=== PATIENT | female | born 1995 | race Caucasian/White ===

== ENCOUNTER 2017-03-01 14:47 | Emergency (ER) | payer BC ==
[2017-03-01 15:07] VITALS: BP 114/73
--- NOTE | 2017-03-01 15:17 | UC ---
Throat Pain/Nasal Dann HPI - HPI Summary HPI Summary: sore throat x 2 days + fever, chills, body aches no cough , no runny nose - History of Current Complaint Chief Complaint: UCRespiratory Stated Complaint: [facility] Time Seen by Provider: 03/01/17 14:57 Hx Obtained From: Patient Hx Last Menstrual Period: ONSET TODAY ?: No Onset/Duration: Gradual Onset, Lasting Days - 2, Still Present Severity: Moderate Cough: None Associated Signs & Symptoms: Positive: Fever. Negative: Dysphagia, FB Sensation , Drooling, Wheezing, Hoarseness, Sinus Discomfort, Nasal Discharge, Rash - Allergies/Home Medications Allergies/Adverse Reactions: Allergies Allergy/AdvReac Type Severity Reaction Status Date / Time Amoxicillin [From Augmentin] Allergy Mild Rash Verified 03/01/17 14:59 Clavulanic Acid Allergy Mild Rash Verified 03/01/17 14:59 [From Augmentin] Home Medications: Home Medications Ibuprofen TAB* [Advil TAB*] 200 mg PO Q6H PRN 03/01/17 [History Confirmed ] PMH/Surg Hx/FS Hx/Imm Hx Previously Healthy: Yes - Surgical History Surgical History: Yes Surgery Procedure, Year, and Place: Tonsillectomy and Adnoidectomy, 2001, [facility] - Family History Known Family History: Negative: Diabetes - Social History Alcohol Use: Occasionally Substance Use Type: None Smoking Status (MU): Never Smoked Tobacco Type: eCigarettes Amount Used/How Often: WEEKLY Have You Smoked in the Last Year: Yes - Immunization History Most Recent Influenza Vaccination: NO Vaccination Up to Date: Yes Review of Systems Constitutional: Fever, Chills, Fatigue Skin: Negative Eyes: Negative ENT: Sore Throat Respiratory: Negative Cardiovascular: Negative Is Patient Immunocompromised?: No All Other Systems Reviewed And Are Negative: Yes Physical Exam Triage Information Reviewed: Yes Appearance: Well-Appearing, No Pain Distress, Well-Nourished Vital Signs: Initial Vital Signs Temp 99.5 F 03/01/17 15:00 Pulse 72 03/01/17 15:00 Resp 18 03/01/17 15:00 BP 114/73 03/01/17 15:00 Pulse Ox 99 03/01/17 15:00 Vital Signs Reviewed: Yes Eyes: Positive: Conjunctiva Clear ENT: Positive: Normal ENT inspection, Hearing grossly normal, Pharyngeal erythema, TMs normal. Negative: Nasal congestion, Nasal drainage, Trismus Neck: Positive: Supple, Nontender, No Lymphadenopathy Respiratory: Positive: Chest non-tender, Lungs clear, Normal breath sounds Cardiovascular: Positive: RRR, No Murmur, Pulses Normal Skin Exam: Normal Throat Pain/Nasal Course/Dx - Differential Dx/Diagnosis Provider Diagnoses: pharyngitis Discharge - Discharge Plan Condition: Stable Disposition: HOME Patient Education Materials: Pharyngitis (ED) Referrals: No Primary Care Phys,NOPCP [Primary Care Provider] - If Needed Additional Instructions: viral pharyngitis negative Rapid strep
== END 2017-03-01 15:27 | disposition home or self-care (01) ==
LOC: UCCORT 14:47
DX: J02.9 Acute pharyngitis, unspecified (principal); F17.290 Nicotine dependence, other tobacco product, uncomplicated; Z72.89 Other problems related to lifestyle
CPT/HCPCS: 87651; 99211; G0463

== ENCOUNTER 2017-04-04 12:50 | Emergency (ER) | payer BC ==
[2017-04-04 14:34] VITALS: BP 118/66
--- NOTE | 2017-04-04 14:58 | UC ---
Respiratory Complaint HPI - HPI Summary HPI Summary: Patient has increased sinus congestion, cough, denies fever. - History of Current Complaint Chief Complaint: UCRespiratory Stated Complaint: BRONCHITIS Time Seen by Provider: 04/04/17 14:40 Hx Obtained From: Patient Hx Last Menstrual Period: 03/10/17 ?: No Onset/Duration: Sudden Onset, Lasting Weeks Timing: Constant Severity Initially: Moderate Severity Currently: Moderate Pain Intensity: 0 Character: Cough: Nonproductive Aggravating Factors: Exertion, Deep Breaths Associated Signs And Symptoms: Positive: URI, Nasal Congestion, Sinus Discomfort - Allergies/Home Medications Allergies/Adverse Reactions: Allergies Allergy/AdvReac Type Severity Reaction Status Date / Time amoxicillin [From Augmentin] Allergy Rash Verified 04/04/17 14:31 clavulanic acid Allergy Rash Verified 04/04/17 14:31 [From Augmentin] Home Medications: Home Medications Norethindrone AC-Eth Estradiol [Loestrin 1/20-21 1-20 mg-Mcg] 1 tab PO DAILY [History Confirmed 04/04/17] PMH/Surg Hx/FS Hx/Imm Hx Previously Healthy: Yes - Surgical History Surgical History: Yes Surgery Procedure, Year, and Place: Tonsillectomy and Adnoidectomy, 2001, [facility] - Family History Known Family History: Negative: Diabetes - Social History Alcohol Use: Occasionally Substance Use Type: None Smoking Status (MU): Never Smoked Tobacco Type: eCigarettes Amount Used/How Often: WEEKLY Have You Smoked in the Last Year: Yes - Immunization History Most Recent Influenza Vaccination: NO Vaccination Up to Date: Yes Review of Systems Constitutional: Negative Skin: Negative Eyes: Negative ENT: Ear Ache, Nasal Discharge, Sinus Pain/Tenderness Respiratory: Cough Cardiovascular: Negative Gastrointestinal: Negative Genitourinary: Negative Motor: Negative Neurovascular: Negative Musculoskeletal: Negative Neurological: Headache Is Patient Immunocompromised?: No All Other Systems Reviewed And Are Negative: Yes Physical Exam Triage Information Reviewed: Yes Appearance: Well-Nourished, Ill-Appearing, Pain Distress Vital Signs: Initial Vital Signs Temp 98.3 F 04/04/17 14:26 Pulse 57 04/04/17 14:26 Resp 14 04/04/17 14:26 BP 118/66 04/04/17 14:26 Pulse Ox 100 04/04/17 14:26 Vital Signs Reviewed: Yes Eye Exam: Normal ENT: Positive: Pharyngeal erythema, TM bulging Dental Exam: Normal Neck exam: Normal Neck: Positive: Supple, Nontender, No Lymphadenopathy Respiratory: Positive: Chest non-tender, No respiratory distress, No accessory muscle use, Wheezing, Inspiration Cardiovascular Exam: Normal Cardiovascular: Positive: RRR, No Murmur, Pulses Normal Abdominal Exam: Normal Abdomen Description: Positive: Nontender, No Organomegaly, Soft Bowel Sounds: Positive: Present Musculoskeletal Exam: Normal Neurological Exam: Normal Psychological Exam: Normal Skin Exam: Normal UC Diagnostic Evaluation - Laboratory O2 Sat by Pulse Oximetry: 100 Respiratory Course/Dx - Course Course Of Treatment: hx obtained, exam performed ,meds reviewed, treated for sinusitis and wheezing - Differential Dx/Diagnosis Differential Diagnosis/HQI/PQRI: Asthma, Bronchitis, Influenza, Laryngitis, Sinusitis Provider Diagnoses: sinusitis and wheezing - Physician Notification/Consults Instructed by Provider To: Admit As Observation Discharge - Discharge Plan Condition: Stable Disposition: HOME Prescriptions: Azithromyxin ALEXANDRE (NF) [Z-Alexandre (Zithromax) 250 mg tabs #6] 2 tab PO .TODAY, THEN 1 DAILY #6 tab predniSONE TAB* [Deltasone TAB*] 40 mg PO DAILY #14 tab Patient Education Materials: Sinusitis (ED) Referrals: Ayaan Glass MD [Primary Care Provider] - Additional Instructions: 1. increase fluid intake and get plenty of rest. 2. take the medication as prescribed.
== END 2017-04-04 15:04 | disposition home or self-care (01) ==
LOC: UCCORT 12:50
DX: J32.9 Chronic sinusitis, unspecified (principal); R06.2 Wheezing; Z88.0 Allergy status to penicillin; Z88.8 Allergy status to other drugs, medicaments and biological substances
CPT/HCPCS: 99212; G0463